=== PATIENT | male | born 1955 | race Caucasian/White ===

== ENCOUNTER 2020-04-26 06:10 | Day surgery (SDC) | payer OTHER ==
[~2020-04-26] VITALS: Ht 190.5 cm; Wt 117.8 kg
[~2020-04-26 06:10] MED LIST: None at this time
[2020-04-26] MEDS ORDERED: LACTATED RINGERS 1,000 ML IV SCH (06:37)
[2020-04-26 06:48] VITALS: BP 148/75
[2020-04-26] MEDS ORDERED: BUPIVACAINE/PF-EPI 0.5% 1:200K ONE (06:49)
[2020-04-26] MEDS ORDERED: CHLORHEXIDINE 15 ML UDC MM ONE (07:00)
[2020-04-26] MEDS ORDERED: MIDAZOLAM 1 MG/ML, 2ML ONE (07:12)
[2020-04-26] MEDS ORDERED: PROPOFOL 50 ML ONE (07:12)
[2020-04-26] MEDS ORDERED: FENTANYL PF 250 MCG/5ML ONE (07:12)
[2020-04-26] MEDS ORDERED: morphine SULFATE 10 MG/ML, 1ML IVPush PRN (07:30)
[2020-04-26] MEDS ORDERED: DIAZEPAM 5 MG/ML, 2ML IVPush PRN (07:30)
[2020-04-26] MEDS ORDERED: MEPERIDINE/PF 25MG/0.5ML IVPush PRN (07:30)
[2020-04-26] MEDS ORDERED: FENTANYL PF 100 MCG/2ML IV PRN (07:30)
[2020-04-26] MEDS ORDERED: EPHEDRINE 50 MG/ML, 1ML IM PRN (07:30)
[2020-04-26] MEDS ORDERED: OXYcodone 5 MG/5 ML ORAL.SOL UDC PO PRN (07:30)
[2020-04-26] MEDS ORDERED: ONDANSETRON 2MG/ML, 2ML IVPush PRN (07:30)
[2020-04-26] MEDS ORDERED: DIPHENHYDRAMINE 50 MG/ML, 1ML IVPush PRN (07:30)
[2020-04-26] MEDS ORDERED: EPHEDRINE 50 MG/ML, 1ML IVPush PRN (07:30)
[2020-04-26] MEDS ORDERED: LABETALOL 5MG/ML, 20ML IV PRN (07:30)
[2020-04-26] MEDS ORDERED: CEFAZOLIN 1,000 MG ONE (07:34)
[2020-04-26] MEDS ORDERED: PROPOFOL 10 MG/ML, 20ML ONE (08:06)
[2020-04-26] MEDS ORDERED: ONDANSETRON 2MG/ML, 2ML ONE (08:08)
[2020-04-26] MEDS ORDERED: DEXAMETHASONE 4 MG/ML, 1ML ONE (08:08)
[2020-04-26] MEDS ORDERED: KETOROLAC 30 MG/1 ML ONE (08:08)
== END 2020-04-26 11:45 | disposition home or self-care (01) ==
LOC: OUT 06:10
PROVIDERS: ATTEND Surgery Vascular Surgery
DX: K40.90 Unilateral inguinal hernia, without obstruction or gangrene, not specified as recurrent (principal); Z11.59 Encounter for screening for other viral diseases; D17.6 Benign lipomatous neoplasm of spermatic cord; Z79.899 Other long term (current) drug therapy; Z85.46 Personal history of malignant neoplasm of prostate; Z87.891 Personal history of nicotine dependence
CPT/HCPCS: 49505; 93005; C1781; J0690; J1100; J1885; J2250; J2405; J2704; J3010; J7120; U0001